=== PATIENT | male | born 1955 | race Hispanic/Latino ===

== ENCOUNTER 2017-09-20 08:06 | Emergency (ER) | payer OTHER ==
[2017-09-20 08:33] LABS: BASOPHILS % (AUTO) 0.4 % (0.0-5.0); HEMATOCRIT 46.2 % (42-54); LYMPHOCYTES % (AUTO) 7.9 % (21.0-51.0); MEAN CORPUSCULAR HEMOGLOBIN 29.6 pg (27.0-33.0); MEAN CORPUSCULAR HGB CONC 33.6 g/dL (32.0-36.0); MEAN CORPUSCULAR VOLUME 87.9 fL (79-99); MONOCYTES % (AUTO) 4.9 % (3.0-13.0); NEUTROPHILS % (AUTO) 86.8 % (40.0-77.0); PLATELET COUNT (AUTO) 271 K/uL (130-400); RED BLOOD CELL COUNT(AUTO) 5.25 MIL/uL (4.50-6.20); RED CELL DISTRIBUTION WIDTH 15.7 % (11.0-15.5); WHITE BLOOD COUNT (AUTO) 21.3 K/uL (4.8-10.8)
[2017-09-20 08:34] LABS: APPEARANCE,URINE TURBID (CLEAR); BILIRUBIN,URINE SMALL (NEGATIVE); COLOR,URINE RED (YELLOW); GLUCOSE, URINE (UA) NEGATIVE (NEGATIVE); KETONES,URINE NEGATIVE (NEGATIVE); LEUKOCYTE ESTERASE ,URINE LARGE (NEGATIVE); NITRATE,URINE POSITIVE (NEGATIVE); OCCULT BLOOD,URINE LARGE (NEGATIVE); PROTEIN,URINE 100 (NEGATIVE); UROBILINOGEN,URINE 0.2 mg/dL (0.2-1.0)
[2017-09-20 08:40] LABS: POTASSIUM 3.7 mmol/L (3.5-5.1)
[2017-09-20 08:47] LABS: RBC,URINE TNTC /HPF (0-1)
[2017-09-20 08:48] LABS: BACTERIA,URINE Rare /HPF (None Seen); SQUAMOUS EPITHELIAL CELL,UR Rare /LPF (0-2)
[2017-09-20] MEDS ORDERED: SULFAMETHOX-TMP DS 800/160 TAB ONE (08:56)
== END 2017-09-20 09:21 | disposition home or self-care (01) ==
LOC: EDH 08:06
DX: N39.0 Urinary tract infection, site not specified (principal); R07.9 Chest pain, unspecified; I10 Essential (primary) hypertension; E78.5 Hyperlipidemia, unspecified
CPT/HCPCS: 36415; 80048; 81001; 84484; 85025; 87088; 87186; 93005

== ENCOUNTER 2017-10-07 10:35 | Inpatient (IN) | payer OTHER ==
[~2017-10-07] VITALS: Ht 182.9 cm; Wt 121.8 kg
[2017-10-07 11:05] LABS: APPEARANCE,URINE Clear (CLEAR); BILIRUBIN,URINE Negative (NEGATIVE); COLOR,URINE Yellow (YELLOW); GLUCOSE, URINE (UA) Negative (NEGATIVE); KETONES,URINE Negative (NEGATIVE); LEUKOCYTE ESTERASE ,URINE Moderate (NEGATIVE); NITRATE,URINE Negative (NEGATIVE); OCCULT BLOOD,URINE Trace (NEGATIVE); PROTEIN,URINE Negative (NEGATIVE); UROBILINOGEN,URINE 0.2 mg/dL (0.2-1.0)
[2017-10-07] MEDS ORDERED: SODIUM CHLORIDE 0.9% 1000ML 1,000 ML IV ONE ×2 (11:05→20:04)
[2017-10-07] MEDS ORDERED: ACETAMINOPHEN EXTRA STRENGTH 500 MG TABLET ONE (11:05)
[2017-10-07 11:27] LABS: RBC,URINE 0-1 /HPF (0-1)
[2017-10-07 11:28] LABS: BACTERIA,URINE Rare /HPF (None Seen); SQUAMOUS EPITHELIAL CELL,UR Rare /LPF (0-2)
[2017-10-07 11:32] LABS: BASOPHILS % (AUTO) 1.6 % (0.0-5.0); EOSINOPHILS % (AUTO) 0.8 % (0.0-8.0); HEMATOCRIT 41.3 % (42-54); LYMPHOCYTES % (AUTO) 11.5 % (21.0-51.0); MEAN CORPUSCULAR HEMOGLOBIN 29.3 pg (27.0-33.0); MEAN CORPUSCULAR HGB CONC 33.8 g/dL (32.0-36.0); MEAN CORPUSCULAR VOLUME 86.8 fL (79-99); MONOCYTES % (AUTO) 8.2 % (3.0-13.0); NEUTROPHILS % (AUTO) 77.9 % (40.0-77.0); PLATELET COUNT (AUTO) 290 K/uL (130-400); RED BLOOD CELL COUNT(AUTO) 4.75 MIL/uL (4.50-6.20); RED CELL DISTRIBUTION WIDTH 14.9 % (11.0-15.5); WHITE BLOOD COUNT (AUTO) 11.1 K/uL (4.8-10.8)
[2017-10-07 11:35] LABS: CARBON DIOXIDE 26 mmol/L (21-32); CHLORIDE 98 mmol/L (101-111); CREATININE 1.2 mg/dL (0.5-1.5); GLOMERULAR FILTR. RATE CALC 66 mL/min (>60); GLUCOSE,RANDOM 87 mg/dL (70-105); SODIUM SERUM 134 mmol/L (136-145); UREA NITROGEN, BLOOD 16 mg/dL (7-18)
[2017-10-07 11:36] LABS: INR 1.01 (0.85-1.15); PARTIAL THROMBOPLASTIN TIME 29.1 SEC (26.3-35.5); PROTHROMBIN TIME 10.6 SEC (9.6-11.6)
[2017-10-07 11:54] LABS: ALANINE AMINOTRANSFERASE 32 U/L (12-78); ALBUMIN 3.4 g/dL (3.5-5.0); ASPARTATE AMINOTRANSFERASE 21 U/L (10-37); BILIRUBIN,TOTAL 0.5 mg/dL (0.2-1.0); CREATINE KINASE MB < 0.5 ng/mL (0.5-3.6); CREATINE KINASE, TOTAL 189 U/L (21-232); MYOGLOBIN 75 ng/mL (10-92); TROPONIN I < 0.04 ng/mL (0.00-0.06)
[2017-10-07] MEDS ORDERED: CEFTRIAXONE SODIUM 1 GM ONE (12:50)
[2017-10-07] MEDS ORDERED: KETOROLAC TROMETHAMINE 30MG/ML ONE (12:50)
[2017-10-07] MEDS ORDERED: POTASSIUM BICARB/CIT AC 25 MEQ TABLET.EFF ONE (12:50)
[2017-10-07] MEDS ORDERED: SODIUM CHLORIDE 0.9% 1000ML 1,000 ML IV SCH (16:18)
[2017-10-07] MEDS ORDERED: GUAIFENESIN-DM 200/20 MG 10 ML PO PRN (16:30)
[2017-10-07] MEDS ORDERED: POTASSIUM CHLORIDE 20 MEQ ERTAB PO PRN (16:30)
[2017-10-07] MEDS ORDERED: MORPHINE SULFATE 4 MG/1ML SYG IV PRN (16:30)
[2017-10-07] MEDS ORDERED: POTASSIUM CHLORIDE 10% ELIXIR 20 MEQ/15 ML UDCUP PO PRN (16:30)
[2017-10-07] MEDS ORDERED: LIDOCAINE HCL-MPF 1% 2ML VIAL IVP PRN (16:30)
[2017-10-07] MEDS ORDERED: HYDRALAZINE HCL 20 MG/ML VIAL IV PRN (16:30)
[2017-10-07] MEDS: CEFTRIAXONE 2GM+NS 100ML 100 ML IV SCH (16:30)
[2017-10-07] MEDS ORDERED: MORPHINE SULFATE 2 MG/ML 1ML SYG IV PRN (16:30)
[2017-10-07] MEDS ORDERED: MAG HYDROX/AL HYDROX/SIMETH ES 30 ML SUSP UDCUP PO PRN (16:30)
[2017-10-07] MEDS ORDERED: POTASSIUM CHLORIDE 20MEQ/100ML 100 ML IV PRN (16:30)
[2017-10-07] MEDS ORDERED: LACTULOSE 20 GM/30 ML UDCUP PO PRN (16:30)
[2017-10-07] MEDS ORDERED: ONDANSETRON HCL 4 MG/2 ML VIAL IV PRN (16:30)
[2017-10-07] MEDS ORDERED: NITROGLYCERIN 0.4 MG SL TAB SL PRN (16:30)
[2017-10-07] MEDS ORDERED: ACETAMINOPHEN-CODEINE 300/30MG TAB PO PRN ×2 (16:30)
[2017-10-07] MEDS ORDERED: ACETAMINOPHEN 325 MG TAB PO PRN ×2 (16:30)
[2017-10-07 17:59] LABS: CREATINE KINASE MB < 0.5 ng/mL (0.5-3.6); CREATINE KINASE, TOTAL 160 U/L (21-232); MYOGLOBIN 64 ng/mL (10-92); TROPONIN I < 0.04 ng/mL (0.00-0.06)
[2017-10-07] MEDS ORDERED: ACETAMINOPHEN 325 MG TAB ONE (20:33)
[2017-10-07] MEDS ORDERED: METOPROLOL TARTRATE 25 MG TAB ONE (20:48)
[2017-10-07] MEDS: METOPROLOL TARTRATE 25 MG TAB PO SCH (21:00)
[2017-10-07] MEDS: FAMOTIDINE/PF 20 MG/2 ML VIAL IV SCH (21:00)
[2017-10-07 22:45] VITALS: BP 148/86
[2017-10-08 00:14] LABS: CREATINE KINASE MB < 0.5 ng/mL (0.5-3.6); CREATINE KINASE, TOTAL 147 U/L (21-232); MYOGLOBIN 53 ng/mL (10-92); TROPONIN I < 0.04 ng/mL (0.00-0.06)
[2017-10-08] MEDS ORDERED: CHLO50TA PO (00:14)
[2017-10-08] MEDS ORDERED: SERT50TA12 PO (00:14)
[2017-10-08] MEDS ORDERED: METO-408 PO (00:14)
[2017-10-08] MEDS ORDERED: LOSA100T29 PO (00:14)
[2017-10-08] MEDS ORDERED: CIPR-295 PO (00:14)
[2017-10-08] MEDS ORDERED: RANO10003 PO (00:14)
[2017-10-08] MEDS ORDERED: ATOR40TA71 PO (00:14)
[2017-10-08] MEDS ORDERED: PRAV80TA21 PO (00:14)
[2017-10-08] MEDS ORDERED: FLUT8AER2 IH (00:14)
[2017-10-08] MEDS ORDERED: TAMS0.4C32 PO (00:14)
[2017-10-08] MEDS ORDERED: AMLO10TA2 PO (00:14)
[2017-10-08] MEDS ORDERED: ASPI-555 PO (00:14)
[2017-10-08 03:15] VITALS: BP 155/92
[2017-10-08 05:50] LABS: HEMATOCRIT 40.5 % (42-54); MEAN CORPUSCULAR HEMOGLOBIN 29.5 pg (27.0-33.0); MEAN CORPUSCULAR HGB CONC 33.8 g/dL (32.0-36.0); MEAN CORPUSCULAR VOLUME 87.2 fL (79-99); PLATELET COUNT (AUTO) 295 K/uL (130-400); RED BLOOD CELL COUNT(AUTO) 4.64 MIL/uL (4.50-6.20); RED CELL DISTRIBUTION WIDTH 15.2 % (11.0-15.5); WHITE BLOOD COUNT (AUTO) 6.8 K/uL (4.8-10.8)
[2017-10-08 06:13] LABS: CREATININE 1.2 mg/dL (0.5-1.5); POTASSIUM 3.9 mmol/L (3.5-5.1)
[2017-10-08] MEDS ORDERED: BUDESONIDE 0.5 MG/2 ML INH IH PRN (08:15)
[2017-10-08 08:40] VITALS: BP 152/76
[2017-10-08] MEDS: METOPROLOL TARTRATE 25 MG TAB PO SCH (08:47)
[2017-10-08] MEDS ORDERED: ENOXAPARIN SODIUM 40 MG/0.4 ML SYRINGE SQ SCH (09:00)
[2017-10-08] MEDS: RANOLAZINE 500 MG TAB.SR.12H PO SCH ×2 (09:00→20:07)
[2017-10-08] MEDS: LOSARTAN 100 MG TABLET PO SCH (09:00)
[2017-10-08] MEDS ORDERED: METOPROLOL TARTRATE 25 MG TAB PO SCH (09:00)
[2017-10-08] MEDS: ASPIRIN 81 MG EC TAB PO SCH (10:16)
[2017-10-08] MEDS: HYDROCHLOROTHIAZIDE 25 MG TABLET PO SCH (10:16)
[2017-10-08] MEDS: AMLODIPINE BESYLATE 5 MG TAB PO SCH (10:17)
[2017-10-08] MEDS: FAMOTIDINE/PF 20 MG/2 ML VIAL IV SCH ×2 (10:17→20:07)
[2017-10-08 12:00] VITALS: BP 139/78
[2017-10-08] MEDS: ALBUTEROL SULFATE 0.083% 2.5 MG/3 ML INH IH PRN (13:07)
[2017-10-08 16:00] VITALS: BP 139/74
[2017-10-08] MEDS: CEFTRIAXONE 2GM+NS 100ML 100 ML IV SCH (16:30)
[2017-10-08 17:40] LABS: APPEARANCE,URINE Clear (CLEAR); BILIRUBIN,URINE Negative (NEGATIVE); COLOR,URINE Yellow (YELLOW); GLUCOSE, URINE (UA) Negative (NEGATIVE); KETONES,URINE Negative (NEGATIVE); LEUKOCYTE ESTERASE ,URINE Trace (NEGATIVE); NITRATE,URINE Negative (NEGATIVE); OCCULT BLOOD,URINE Negative (NEGATIVE); PH,URINE 7.5 (5.0-8.0); PROTEIN,URINE Negative (NEGATIVE); UROBILINOGEN,URINE 0.2 mg/dL (0.2-1.0)
[2017-10-08 17:50] LABS: BACTERIA,URINE None Seen /HPF (None Seen); RBC,URINE None Seen /HPF (0-1); SQUAMOUS EPITHELIAL CELL,UR 0-2 /LPF (0-2); WBC,URINE None Seen /HPF (0-1)
[2017-10-08] MEDS ORDERED: CEFTRIAXONE SODIUM 2 GM VIAL ONE (18:10)
[2017-10-08 19:25] VITALS: BP 140/73
[2017-10-08] MEDS: SERTRALINE HCL 50 MG TABLET PO SCH (20:07)
[2017-10-08] MEDS: TAMSULOSIN HCL 0.4 MG CAP.ER.24H PO SCH (20:07)
[2017-10-08] MEDS: ATORVASTATIN CALCIUM 40 MG TABLET PO SCH (20:07)
[2017-10-08] MEDS ORDERED: ATORVASTATIN CALCIUM 40 MG TABLET PO SCH (21:00)
[2017-10-08 23:30] VITALS: BP 140/78
[2017-10-09] VITALS (15 sets, daily range): BP systolic 110–145; BP diastolic 63–82
[2017-10-09 05:04] LABS: HEMATOCRIT 44.8 % (42-54); MEAN CORPUSCULAR HEMOGLOBIN 30.4 pg (27.0-33.0); MEAN CORPUSCULAR HGB CONC 34.6 g/dL (32.0-36.0); MEAN CORPUSCULAR VOLUME 87.8 fL (79-99); PLATELET COUNT (AUTO) 366 K/uL (130-400); RED BLOOD CELL COUNT(AUTO) 5.11 MIL/uL (4.50-6.20); RED CELL DISTRIBUTION WIDTH 15.1 % (11.0-15.5); WHITE BLOOD COUNT (AUTO) 7.5 K/uL (4.8-10.8)
[2017-10-09 05:07] LABS: INR 1.11 (0.85-1.15); PARTIAL THROMBOPLASTIN TIME 29.4 SEC (26.3-35.5); PROTHROMBIN TIME 11.6 SEC (9.6-11.6)
[2017-10-09 05:17] LABS: CREATININE 1.4 mg/dL (0.5-1.5); POTASSIUM 3.7 mmol/L (3.5-5.1)
[2017-10-09] MEDS: ALBUTEROL SULFATE 0.083% 2.5 MG/3 ML INH IH PRN (07:20)
[2017-10-09] MEDS ORDERED: HEPARIN SODIUM 1000UNIT/ML 10ML VIAL ONE (07:20)
[2017-10-09] MEDS ORDERED: IOPAMIDOL-370 100 ML VIAL IV ONE (07:20)
[2017-10-09] MEDS ORDERED: LIDOCAINE HCL 2% 20ML ONE (07:21)
[2017-10-09] MEDS ORDERED: ISOVUE-370 50ML VIAL IV ONE (07:21)
[2017-10-09] MEDS ORDERED: HYDRALAZINE HCL 20 MG/ML VIAL ONE (08:00)
[2017-10-09] MEDS: SODIUM CHLORIDE 0.9% 1000ML 1,000 ML IV SCH (08:42)
[2017-10-09] MEDS: ASPIRIN 81 MG EC TAB PO SCH (10:11)
[2017-10-09] MEDS: LOSARTAN 100 MG TABLET PO SCH (10:11)
[2017-10-09] MEDS: AMLODIPINE BESYLATE 5 MG TAB PO SCH (10:11)
[2017-10-09] MEDS: RANOLAZINE 500 MG TAB.SR.12H PO SCH ×2 (10:11→20:30)
[2017-10-09] MEDS: HYDROCHLOROTHIAZIDE 25 MG TABLET PO SCH (10:12)
[2017-10-09] MEDS: FAMOTIDINE/PF 20 MG/2 ML VIAL IV SCH ×2 (12:55→20:30)
[2017-10-09] MEDS ORDERED: IOPAMIDOL-370 75 ML VIAL IV ONE (14:46)
[2017-10-09] MEDS: CEFTRIAXONE 2GM+NS 100ML 100 ML IV SCH (17:36)
[2017-10-09] MEDS: SERTRALINE HCL 50 MG TABLET PO SCH (20:30)
[2017-10-09] MEDS: ATORVASTATIN CALCIUM 40 MG TABLET PO SCH (20:30)
[2017-10-09] MEDS: TAMSULOSIN HCL 0.4 MG CAP.ER.24H PO SCH (20:30)
[2017-10-10] MEDS: SODIUM CHLORIDE 0.9% 1000ML 1,000 ML IV SCH (00:56)
[2017-10-10 03:00] VITALS: BP 146/69
[2017-10-10 04:09] LABS: HEMATOCRIT 41.9 % (42-54); MEAN CORPUSCULAR HEMOGLOBIN 30.2 pg (27.0-33.0); MEAN CORPUSCULAR HGB CONC 34.7 g/dL (32.0-36.0); PLATELET COUNT (AUTO) 334 K/uL (130-400); RED BLOOD CELL COUNT(AUTO) 4.82 MIL/uL (4.50-6.20); RED CELL DISTRIBUTION WIDTH 15.3 % (11.0-15.5); WHITE BLOOD COUNT (AUTO) 6.3 K/uL (4.8-10.8)
[2017-10-10 04:21] LABS: CREATININE 1.3 mg/dL (0.5-1.5)
[2017-10-10 08:00] VITALS: BP 137/76
[2017-10-10] MEDS ORDERED: ISOS30TA6 PO (09:18)
[2017-10-10] MEDS ORDERED: CEFU500T67 PO (09:18)
[2017-10-10] MEDS: AMLODIPINE BESYLATE 5 MG TAB PO SCH (09:25)
[2017-10-10] MEDS: LOSARTAN 100 MG TABLET PO SCH (09:25)
[2017-10-10] MEDS: ASPIRIN 81 MG EC TAB PO SCH (09:25)
[2017-10-10] MEDS: FAMOTIDINE/PF 20 MG/2 ML VIAL IV SCH (09:25)
[2017-10-10] MEDS: RANOLAZINE 500 MG TAB.SR.12H PO SCH (09:25)
[2017-10-10] MEDS: HYDROCHLOROTHIAZIDE 25 MG TABLET PO SCH (09:25)
[2017-10-10 11:00] VITALS: BP 127/67
[2017-10-10 16:00] VITALS: BP 127/71
== END 2017-10-10 20:10 | disposition home or self-care (01) | DRG 287 ==
LOC: EDH 10:35 → EDHIP 14:43 → OBSVTOIN 14:43 → 3BH 22:14
PROVIDERS: ADMIT Internal Medicine; ATTEND Internal Medicine
PROC: B2111ZZ Fluoroscopy of Multiple Coronary Arteries using Low Osmolar Contrast (ICD-10-PCS; principal; 2017-10-09)
PROC: 4A023N7 Measurement of Cardiac Sampling and Pressure, Left Heart, Percutaneous Approach (ICD-10-PCS; 2017-10-09)
PROC: B2151ZZ Fluoroscopy of Left Heart using Low Osmolar Contrast (ICD-10-PCS; 2017-10-09)
DX: I25.10 Atherosclerotic heart disease of native coronary artery without angina pectoris (principal); E87.1 Hypo-osmolality and hyponatremia; E87.8 Other disorders of electrolyte and fluid balance, not elsewhere classified; N39.0 Urinary tract infection, site not specified; E78.5 Hyperlipidemia, unspecified; I10 Essential (primary) hypertension; E86.0 Dehydration; E87.6 Hypokalemia; F32.9 Major depressive disorder, single episode, unspecified; N40.0 Benign prostatic hyperplasia without lower urinary tract symptoms; Z87.440 Personal history of urinary (tract) infections; Z87.891 Personal history of nicotine dependence; Z95.1 Presence of aortocoronary bypass graft; Z90.49 Acquired absence of other specified parts of digestive tract
CPT/HCPCS: 36415; 71045; 74178; 80048; 80053; 81001; 82550; 82553; 83605; 83874; 84153; 84484; 85025; 85027; 85610; 85730; 87040; 87088; 87804; 93005; 93459; 94640; 94664; C1894; J0360; J0696; J1644; J1650; J1885; J3490; J7030; Q9967

== ENCOUNTER → 2019-11-13 | Outpatient (CLI) | payer OTHER ==
[~2019-11-13] MED LIST: AMLO10TA7 PO; ASPI-555 PO; ATOR40TA71 PO; CEFU500T67 PO; CHLO50TA PO; FLUT8AER2 IH; ISOS30TA6 PO; LOSA100T58 PO; METO-408 PO; PRAV80TA21 PO; RANO10003 PO; REGADENOSON 0.4 MG/5 ML PF SYG IVP SCH; SERT50TA12 PO; TAMS0.4C32 PO
== END | disposition home or self-care (01) ==
LOC: SHCH 08:32
PROVIDERS: ATTEND Internal Medicine Cardiovascular Disease
DX: I25.10 Atherosclerotic heart disease of native coronary artery without angina pectoris (principal)
CPT/HCPCS: 78452; 93017; 96374; A9500 ×2; J2785

== ENCOUNTER 2019-12-08 05:45 | Day surgery (SDC) | payer OTHER ==
[2019-12-04 09:15] VITALS: BP 122/64
[2019-12-04 09:20] LABS: BASOPHILS % (AUTO) 0.9 % (0.0-5.0); EOSINOPHILS % (AUTO) 2.9 % (0.0-8.0); HEMATOCRIT 46.4 % (42-54); LYMPHOCYTES % (AUTO) 23.1 % (21.0-51.0); MEAN CORPUSCULAR HEMOGLOBIN 29.9 pg (27.0-33.0); MEAN CORPUSCULAR HGB CONC 33.4 g/dL (32.0-36.0); MEAN CORPUSCULAR VOLUME 89.6 fL (79-99); MONOCYTES % (AUTO) 9.6 % (3.0-13.0); NEUTROPHILS % (AUTO) 63.3 % (40.0-77.0); PLATELET COUNT (AUTO) 249 K/uL (130-400); RED BLOOD CELL COUNT(AUTO) 5.18 MIL/uL (4.50-6.20); WHITE BLOOD COUNT (AUTO) 6.5 K/uL (4.8-10.8)
[2019-12-04 09:21] LABS: APPEARANCE,URINE Clear (CLEAR); BILIRUBIN,URINE Negative (NEGATIVE); COLOR,URINE Dark Yellow (YELLOW); GLUCOSE, URINE (UA) Negative (NEGATIVE); KETONES,URINE Negative (NEGATIVE); LEUKOCYTE ESTERASE ,URINE Negative (NEGATIVE); NITRATE,URINE Negative (NEGATIVE); OCCULT BLOOD,URINE Negative (NEGATIVE); PH,URINE 5.5 (5.0-8.0); PROTEIN,URINE Negative (NEGATIVE)
[2019-12-04 09:28] LABS: CREATININE 1.5 mg/dL (0.5-1.5); POTASSIUM 3.8 mmol/L (3.5-5.1)
[2019-12-04 09:36] LABS: INR 0.99 (0.85-1.15); PARTIAL THROMBOPLASTIN TIME 27.5 SEC (26.3-35.5); PROTHROMBIN TIME 10.7 SEC (9.6-11.6)
[2019-12-04 09:52] LABS: BACTERIA,URINE Rare /HPF (None Seen); RBC,URINE 0-1 /HPF (0-1); SQUAMOUS EPITHELIAL CELL,UR Rare /HPF (0-2); WBC,URINE 0-1 /HPF (0-1)
--- NOTE | 2019-12-05 11:20 | NUR ---
ABNORMAL HIGH BUN AND CREAT, REPORTED TO ONUR XIONG NP OK TO PROCEED NO NEW ORDERS.
[~2019-12-08] VITALS: Ht 177.8 cm; Wt 122.6 kg
[2019-12-08] VITALS (10 sets, daily range): BP systolic 113–151; BP diastolic 58–77
[~2019-12-08 05:45] MED LIST changes: +BUSP15TA3 PO; -CEFU500T67 PO; -FLUT8AER2 IH; +LEVO25TA54 PO; -LOSA100T58 PO; -METO-408 PO; +OMEP40CA13 PO; +PARO40TA72 PO; -PRAV80TA21 PO; -REGADENOSON 0.4 MG/5 ML PF SYG IVP SCH; -SERT50TA12 PO; +VALS160T29 PO
--- NOTE | 2019-12-08 06:05 | NUR ---
PRE OP PT ARRIVED AMBULATORY IN NO DISTRESS. PT ORIENTED TO ROOM, CALL LIGHT WITH IN REACH AND BED IN LOWEST POSITION. PT CONNECTED TO COURT BAILIFF OR SHERIFF.
[2019-12-08] MEDS ORDERED: SODIUM CHLORIDE 0.9% 1000ML 1,000 ML IV ONE (06:13)
--- NOTE | 2019-12-08 07:24 | NUR ---
TRANSFER PT TAKEN TO [facility] VIA BED BY JESSICA ANGELES. PT IN NO DISTRESS. NOTIFIED
[2019-12-08] MEDS ORDERED: IOHEXOL 350 MG/ML 100ML INFUS..BTL IV ONE (07:31)
[2019-12-08] MEDS ORDERED: LIDOCAINE HCL 2% 20ML ONE (07:31)
[2019-12-08] MEDS ORDERED: MIDAZOLAM HCL 1 MG/ML 2ML VIAL ONE (07:31)
[2019-12-08] MEDS ORDERED: NITROGLYCERIN 2 MG/VIAL VIAL IV ONE (07:31)
[2019-12-08] MEDS ORDERED: HEPARIN SODIUM 1000UNIT/ML 10ML VIAL ONE (07:31)
[2019-12-08] MEDS ORDERED: IOHEXOL-350 50ML VIAL IV ONE (07:31)
[2019-12-08] MEDS ORDERED: HYDRALAZINE HCL 20 MG/ML VIAL ONE (07:46)
--- NOTE | 2019-12-08 08:40 | NUR ---
Dr Bello here spoke with pt regarding heart cath results , Dr Bello spoke with Alix on telephone . Addendum: 12/08/19 at 0856 by FELICITY FENTON RN RN Amended: Links added.
--- NOTE | 2019-12-08 13:10 | NUR ---
DISCHARGE site right groin intact with dressing in place ,soft, no bleeding pedal pulses present.discharge instuctions discussed with pt voices understanding.discharge via wheelchair to private car Addendum: 12/08/19 at 1344 by FELICITY FENTON RN RN Amended: Links added.
== END 2019-12-08 13:10 | disposition home or self-care (01) ==
LOC: DAH 05:45
PROVIDERS: ATTEND Internal Medicine Cardiovascular Disease
DX: I25.10 Atherosclerotic heart disease of native coronary artery without angina pectoris (principal); I10 Essential (primary) hypertension; E78.5 Hyperlipidemia, unspecified; N40.0 Benign prostatic hyperplasia without lower urinary tract symptoms; Z95.1 Presence of aortocoronary bypass graft
CPT/HCPCS: 36415; 71045; 80048; 81001; 85025; 85610; 85730; 93005; 93459; A4215; A4216; A4221; A4222; A4223 ×3; A4606; A4663; C1760; C1894; J0360; J1644 ×2; J3490 ×2; J7030; Q9967 ×2; J2250

== ENCOUNTER → 2023-02-27 | Outpatient (CLI) | payer OTHER ==
[~2023-02-27] MED LIST changes: +AMLO-258 PO; -AMLO10TA7 PO; -ASPI-555 PO; +ASPI-556 PO; +CEFD300C3 PO; +DOXY100C5 PO; +FLUT16H NASAL; +IOHEXOL-350 50ML VIAL IV ONE; -ISOS30TA6 PO; +ISOS60TA77 PO; -OMEP40CA13 PO; +OMEP40CA21 PO; +PARO30TA60 PO
== END | disposition home or self-care (01) ==
LOC: RAH 09:29
PROVIDERS: ATTEND Internal Medicine
DX: I25.10 Atherosclerotic heart disease of native coronary artery without angina pectoris (principal); R04.2 Hemoptysis
CPT/HCPCS: 71260; Q9967

== ENCOUNTER → 2025-01-12 | Outpatient (CLI) | payer OTHER ==
[~2025-01-12] MED LIST changes: -IOHEXOL-350 50ML VIAL IV ONE
[2025-01-12 12:40] LABS: ALBUMIN 4.3 g/dL (3.5-5.0); BILIRUBIN,TOTAL 0.5 mg/dL (0.2-1.0); CREATININE 1.6 mg/dL (0.5-1.3); POTASSIUM 4.8 mmol/L (3.5-5.1); TOTAL PROTEIN, SERUM 8.8 g/dL (6.0-8.3)
== END | disposition home or self-care (01) ==
LOC: LAB 09:12
PROVIDERS: ATTEND Internal Medicine Cardiovascular Disease
DX: I12.9 Hypertensive chronic kidney disease with stage 1 through stage 4 chronic kidney disease, or unspecified chronic kidney disease (principal); N18.2 Chronic kidney disease, stage 2 (mild)
CPT/HCPCS: 36415; 80053